=== PATIENT | male | born 1990 | race Caucasian/White ===

== ENCOUNTER → 2016-03-12 | Outpatient (CLI) | payer MEDICAID ==
--- NOTE | 2016-03-12 13:34 | DX ---
Cervical Spine, 2 upright views History: Follow-up left C7 facet fracture, S12.600A Comparison: January 30, 2016 Findings: A slight scoliosis concave to the left centered in the mid cervical spine is stable. Cervic al alignment remains anatomic. The left C7 superior articulating facet fracture is faintly still visi ble, but less than 2 months ago. There is no prevertebral soft tissue swelling. Impression: Healing is occurring. Alignment remains anatomic.
== END ==
LOC: FIMAGING 12:53
PROVIDERS: ATTEND Radiology Diagnostic Radiology
DX: S12.600D Unspecified displaced fracture of seventh cervical vertebra, subsequent encounter for fracture with routine healing (principal)